=== PATIENT | female | born 1945 | race Caucasian/White ===

== ENCOUNTER 2017-01-16 08:56 | Inpatient (IN) | payer BC, MEDICARE ==
[~2017-01-16] VITALS: Ht 154.9 cm; Wt 61.3 kg
[~2017-01-16 08:56] MED LIST: ALEVE 220MG220 MG PO; CIPRO 500MG TA500 MG PO; COLACE 100100 MG/CAP PO; DESYREL 50MG50 MG PO; FML 5 ML5 ML OP; HYOPHEN1 TAB PO; HYZAAR 12.5 MG-1 TAB PO; MYRBETR25MG PO; PERCOCET 325 MG1 TA2 PO; PRILOSEC 20MG20 MG PO; PROSED D/S1 TAB; SENNA5.6 MG PO; ZETIA 10MG TAB10 MG PO; ZYRTEC 10MG10 MG PO
[2017-02-08] VITALS (12 sets, daily range): BP systolic 111–128; BP diastolic 47–81; PULSE 65–99; TEMP 97.7–99.4
[2017-02-08] MEDS ORDERED: LUNESTA 1MG TAB1 MG PO (06:05)
[2017-02-08] MEDS ORDERED: ZYRTEC 10MG10 MG PO (06:05)
[2017-02-08] MEDS ORDERED: FLORAJEN A20 Billion PO (06:06)
[2017-02-08] MEDS ORDERED: COLACE 100100 MG/CAP PO (22:57)
[2017-02-09 02:17] VITALS: BP 110/51; PULSE 99; TEMP 98.7
[2017-02-09 05:59] VITALS: BP 104/54; PULSE 94; TEMP 97.9
[2017-02-09 07:20] LABS: HEMATOCRIT 35.9 % (37.0-47.0); HEMOGLOBIN 11.6 g/dl (12.5-16.0)
[2017-02-09 07:22] LABS: CALCIUM 8.5 mg/dL (8.4-10.2); CREATININE, serum 0.67 mg/dL (0.52-1.25); MAGNESIUM 1.6 mg/dL (1.6-2.3); PHOSPHOROUS 3.1 mg/dL (2.5-4.5); POTASSIUM 3.6 mmol/L (3.4-5.0)
[2017-02-09 10:31] VITALS: BP 105/53; PULSE 102; TEMP 98.2
[2017-02-09 14:17] VITALS: BP 99/46; PULSE 92; TEMP 98.4
[2017-02-09 17:38] VITALS: BP 132/58; PULSE 93; TEMP 98.2
[2017-02-09 21:59] VITALS: BP 105/51; PULSE 63; TEMP 98.5
[2017-02-10 01:21] VITALS: BP 115/58; PULSE 91; TEMP 98.3
[2017-02-10 05:58] VITALS: BP 124/63; PULSE 97; TEMP 98.8
[2017-02-10 09:34] VITALS: BP 110/52; PULSE 98; TEMP 99.4
[2017-02-10 14:03] VITALS: BP 98/50; PULSE 99; TEMP 98.6
[2017-02-10 17:32] VITALS: BP 111/62; PULSE 84; TEMP 97.6
[2017-02-10 21:15] VITALS: BP 107/53; PULSE 87; TEMP 98.7
[2017-02-11 01:48] VITALS: BP 108/56; PULSE 83; TEMP 97.6
[2017-02-11 06:01] VITALS: BP 93/64; PULSE 85; TEMP 98.1
[2017-02-11 09:40] VITALS: BP 104/52; PULSE 92; TEMP 97.8
[2017-02-11 13:13] VITALS: BP 117/59; PULSE 84; TEMP 97.6
[2017-02-11 18:10] VITALS: BP 141/78; PULSE 94; TEMP 98.2
[2017-02-11 21:12] VITALS: BP 131/54; PULSE 90; TEMP 99.8
[2017-02-12 04:25] VITALS: BP 129/62; PULSE 88; TEMP 98.5
[2017-02-12] MEDS ORDERED: MOTRIN 400400 MG/TAB PO (08:58)
[2017-02-12] MEDS ORDERED: NORCO 325 MG-7.1 TAB PO (08:58)
[2017-02-12 09:41] VITALS: BP 148/59; PULSE 93; TEMP 97.4
== END 2017-02-12 11:30 | disposition home or self-care (01) | DRG 337 ==
LOC: INPTSU 02-08 05:42 → SURG 02-08 05:42
PROVIDERS: Surgery
PROC: 0DNW0ZZ Release Peritoneum, Open Approach (ICD-10-PCS; 2017-02-08)
PROC: 0WUF0JZ Supplement Abdominal Wall with Synthetic Substitute, Open Approach (ICD-10-PCS; principal; 2017-02-08 07:30)
DX: K43.5 Parastomal hernia without obstruction or gangrene (principal); K43.2 Incisional hernia without obstruction or gangrene; K66.0 Peritoneal adhesions (postprocedural) (postinfection); I10 Essential (primary) hypertension; Z85.51 Personal history of malignant neoplasm of bladder; Z86.73 Personal history of transient ischemic attack (TIA), and cerebral infarction without residual deficits
CPT/HCPCS: A4315; A9284; C1781; J0690; J1100; J1650; J2250; J2370; J2405; J2704; J2710; J3010; J7120

== ENCOUNTER → 2017-02-28 | Outpatient (CLI) | payer BC, MEDICARE ==
[~2017-02-28] MED LIST changes: +FLORAJEN A20 Billion PO; +LUNESTA 1MG TAB1 MG PO; +MOTRIN 400400 MG/TAB PO; +NORCO 325 MG-7.1 TAB PO
== END ==
LOC: ZCOL.LAB 14:57
DX: K43.2 Incisional hernia without obstruction or gangrene (principal); K43.5 Parastomal hernia without obstruction or gangrene

== ENCOUNTER → 2017-03-03 | Outpatient (CLI) | payer BC, MEDICARE | LOC: WCC 14:31 | DX: T81.31XA Disruption of external operation (surgical) wound, not elsewhere classified, initial encounter (principal); Z88.3 Allergy status to other anti-infective agents; Z88.2 Allergy status to sulfonamides | CPT/HCPCS: 27511; A6210; G0463 ==

== ENCOUNTER → 2017-03-06 | Outpatient (CLI) | payer BC, MEDICARE | LOC: WCC 08:13 | DX: T81.31XA Disruption of external operation (surgical) wound, not elsewhere classified, initial encounter (principal) ==

== ENCOUNTER → 2017-03-08 | Outpatient (CLI) | payer BC, MEDICARE | LOC: WCC 10:10 | DX: T81.31XA Disruption of external operation (surgical) wound, not elsewhere classified, initial encounter (principal) ==

== ENCOUNTER → 2017-03-10 | Outpatient (CLI) | payer BC, MEDICARE | LOC: WCC 09:04 | DX: T81.31XA Disruption of external operation (surgical) wound, not elsewhere classified, initial encounter (principal) | CPT/HCPCS: 17717; A6212; G0463 ==

== ENCOUNTER → 2017-03-13 | Outpatient (CLI) | payer BC, MEDICARE | LOC: WCC 10:28 | DX: T81.31XA Disruption of external operation (surgical) wound, not elsewhere classified, initial encounter (principal) ==

== ENCOUNTER → 2017-03-15 | Outpatient (CLI) | payer BC, MEDICARE | LOC: WCC 09:01 | DX: T81.31XA Disruption of external operation (surgical) wound, not elsewhere classified, initial encounter (principal); Z93.6 Other artificial openings of urinary tract status ==

== ENCOUNTER → 2017-03-17 | Outpatient (CLI) | payer BC, MEDICARE | LOC: WCC 08:56 | DX: T81.31XA Disruption of external operation (surgical) wound, not elsewhere classified, initial encounter (principal); Z93.6 Other artificial openings of urinary tract status ==

== ENCOUNTER → 2017-03-21 | Outpatient (CLI) | payer BC, MEDICARE | LOC: WCC 09:03 | DX: T81.31XA Disruption of external operation (surgical) wound, not elsewhere classified, initial encounter (principal); Z93.6 Other artificial openings of urinary tract status ==

== ENCOUNTER → 2017-03-24 | Outpatient (CLI) | payer BC, MEDICARE | LOC: WCC 10:25 | DX: T81.31XA Disruption of external operation (surgical) wound, not elsewhere classified, initial encounter (principal) ==

== ENCOUNTER → 2017-03-27 | Outpatient (CLI) | payer BC, MEDICARE | LOC: WCC 09:12 | DX: T81.31XA Disruption of external operation (surgical) wound, not elsewhere classified, initial encounter (principal) ==

== ENCOUNTER → 2017-03-29 | Outpatient (CLI) | payer BC, MEDICARE | LOC: WCC 08:50 | DX: T81.31XA Disruption of external operation (surgical) wound, not elsewhere classified, initial encounter (principal) ==

== ENCOUNTER → 2017-03-31 | Outpatient (CLI) | payer BC, MEDICARE | LOC: WCC 03-30 08:41 | DX: T81.31XA Disruption of external operation (surgical) wound, not elsewhere classified, initial encounter (principal); Z93.6 Other artificial openings of urinary tract status ==

== ENCOUNTER → 2017-04-03 | Outpatient (CLI) | payer BC, MEDICARE | LOC: WCC 09:44 | DX: T81.31XA Disruption of external operation (surgical) wound, not elsewhere classified, initial encounter (principal) ==

== ENCOUNTER → 2017-04-05 | Outpatient (CLI) | payer BC, MEDICARE | LOC: WCC 04-03 09:15 | DX: T81.31XA Disruption of external operation (surgical) wound, not elsewhere classified, initial encounter (principal) ==

== ENCOUNTER → 2017-04-07 | Outpatient (CLI) | payer BC, MEDICARE | LOC: WCC 04-03 08:23 | DX: T81.31XA Disruption of external operation (surgical) wound, not elsewhere classified, initial encounter (principal); Z93.6 Other artificial openings of urinary tract status ==

== ENCOUNTER → 2017-04-10 | Outpatient (CLI) | payer BC, MEDICARE | LOC: WCC 09:39 | DX: T81.31XA Disruption of external operation (surgical) wound, not elsewhere classified, initial encounter (principal) ==

== ENCOUNTER → 2017-04-12 | Outpatient (CLI) | payer BC, MEDICARE | LOC: WCC 04-11 10:06 | DX: T81.31XA Disruption of external operation (surgical) wound, not elsewhere classified, initial encounter (principal); Z93.6 Other artificial openings of urinary tract status ==

== ENCOUNTER → 2017-04-14 | Outpatient (CLI) | payer BC, MEDICARE | LOC: WCC 08:32 | DX: T81.31XA Disruption of external operation (surgical) wound, not elsewhere classified, initial encounter (principal); Z93.6 Other artificial openings of urinary tract status | CPT/HCPCS: 17717; A6212; G0463 ==

== ENCOUNTER → 2017-04-17 | Outpatient (CLI) | payer BC, MEDICARE | LOC: WCC 08:39 | DX: T81.31XA Disruption of external operation (surgical) wound, not elsewhere classified, initial encounter (principal); Z93.6 Other artificial openings of urinary tract status ==

== ENCOUNTER → 2017-04-19 | Outpatient (CLI) | payer BC, MEDICARE | LOC: WCC 08:47 | DX: T81.31XA Disruption of external operation (surgical) wound, not elsewhere classified, initial encounter (principal); Z93.6 Other artificial openings of urinary tract status ==

== ENCOUNTER → 2017-04-21 | Outpatient (CLI) | payer BC, MEDICARE | LOC: WCC 08:42 | DX: T81.31XA Disruption of external operation (surgical) wound, not elsewhere classified, initial encounter (principal); Z93.6 Other artificial openings of urinary tract status ==

== ENCOUNTER → 2017-04-24 | Outpatient (CLI) | payer BC, MEDICARE | LOC: WCC 10:28 | DX: T81.31XA Disruption of external operation (surgical) wound, not elsewhere classified, initial encounter (principal); Z93.6 Other artificial openings of urinary tract status | CPT/HCPCS: 17717; 27515; A6212; G0463 ==

== ENCOUNTER → 2017-04-26 | Outpatient (CLI) | payer BC, MEDICARE | LOC: WCC 04-25 10:08 | DX: T81.31XA Disruption of external operation (surgical) wound, not elsewhere classified, initial encounter (principal) | CPT/HCPCS: 17717; 27514; A6212; G0463 ==

== ENCOUNTER → 2017-05-01 | Outpatient (CLI) | payer BC, MEDICARE | LOC: WCC 10:22 | DX: T81.31XA Disruption of external operation (surgical) wound, not elsewhere classified, initial encounter (principal); Z93.6 Other artificial openings of urinary tract status | CPT/HCPCS: 17716; 27510; A6197; A6212; G0463 ==

== ENCOUNTER 2017-06-22 11:33 | Outpatient (CLI) | payer BC ==
[~2017-06-22] VITALS: Ht 154.9 cm; Wt 59.8 kg
[2017-06-22] VITALS (14 sets, daily range): BP systolic 138–193; BP diastolic 70–99; PULSE 66–82; TEMP 98.6
== END 2017-06-22 16:15 | disposition home or self-care (01) ==
LOC: COL.RAD 11:33
DX: R91.1 Solitary pulmonary nodule (principal); Z85.51 Personal history of malignant neoplasm of bladder

== ENCOUNTER → 2017-06-28 | Outpatient (CLI) | payer BC, MEDICARE | LOC: MC.RAD 06-20 09:20 | DX: Z12.31 Encounter for screening mammogram for malignant neoplasm of breast (principal) ==

== ENCOUNTER → 2017-06-29 | Outpatient (CLI) | payer BC | LOC: COL.RAD 14:23 | DX: C34.90 Malignant neoplasm of unspecified part of unspecified bronchus or lung (principal) | CPT/HCPCS: A9585 ==

== ENCOUNTER → 2018-06-29 | Outpatient (CLI) | payer BC | LOC: MC.RAD 09:53 | DX: Z12.31 Encounter for screening mammogram for malignant neoplasm of breast (principal) ==

== ENCOUNTER → 2019-07-01 | Outpatient (CLI) | payer MEDICARE, BC | LOC: MC.RAD 10:30 | DX: Z12.31 Encounter for screening mammogram for malignant neoplasm of breast (principal) ==

== ENCOUNTER → 2020-01-10 | Outpatient (CLI) | payer MEDICARE, BC | LOC: COL.RAD 01-08 07:30 | DX: C34.31 Malignant neoplasm of lower lobe, right bronchus or lung (principal); J44.9 Chronic obstructive pulmonary disease, unspecified; J98.4 Other disorders of lung; K43.5 Parastomal hernia without obstruction or gangrene; Z98.890 Other specified postprocedural states; Z90.49 Acquired absence of other specified parts of digestive tract; Z90.710 Acquired absence of both cervix and uterus; Z96.641 Presence of right artificial hip joint ==

== ENCOUNTER 2020-03-25 05:36 | Day surgery (SDC) | payer MEDICARE, BC ==
[~2020-03-25] VITALS: Ht 154.9 cm; Wt 65.0 kg
[2020-03-25] VITALS (11 sets, daily range): BP systolic 99–145; BP diastolic 41–81; PULSE 64–101; TEMP 97.3–99
--- NOTE | 2020-03-25 05:40 | NUR ---
To room 329 via wheelchair. Oriented to room/policy. Admission assessment complete. Med RX completed. Consent signed. Right shoulder scrub complete/sight marked. IV placed to left hand x2 attempts-20guage. Emelyn maloney. Denies questions/concerns. Call light in reach. Will monitor.
[2020-03-25] MEDS ORDERED: FOLIC ACID 11 MG/TA1 PO (06:17)
[2020-03-25] MEDS ORDERED: NATURAL IRON65 MG PO (06:17)
[2020-03-25] MEDS ORDERED: VITAMINC1000TA PO (06:17)
--- NOTE | 2020-03-25 06:27 | NUR ---
To OR via bed at this time.
--- NOTE | 2020-03-25 11:24 | NUR ---
PT TO ROOM 329 PER BED WITH LEXIE TERMINAL SUPERINTENDENT @1110.PT IS A/O X3, DENIES PAIN, LUNGS CLEAR, RIGHT SHOULDER WITH BULKY FOAM TAPE, IV TO PUMP, SCDS BILATERALLY, TEDS INPLACE. PT'S AT BEDSIDE.
--- NOTE | 2020-03-25 14:51 | NUR ---
DICKSON met with the patient and her , Kwadwo (ph#[phone]), to discuss discharge plan. The patient lives in [place] with her . She reports independence with ADLs and has a cane available to her, if needed. The patient's PCP is Dr. Mimi Hand and she receives her medications at [facility]. She reports no difficulties obtaining her meds. The patient's DPOA-HC is in EMR and it designates her . The patient plans to return home with her and receive outpatient PT at [facility] upon discharge. No additional needs at this time.
--- NOTE | 2020-03-25 19:28 | NUR ---
Tolerating diet/fluids. INTd at this time.
--- NOTE | 2020-03-25 20:00 | NUR ---
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 Assessment complete. A&Ox3. VS stable. Denies pain/nausea/shortness of breath. Can wiggle fingers but states arm is still numb to touch. Dressing to right shoulder-bulky with foam tape-CDI. Immobilizer on. Fresh ice pack applied. SCDs/TEDs bilat. Denies questions/concerns. Call light in reach. Will monitor.
--- NOTE | 2020-03-25 21:05 | NUR ---
Called with c/o pain to right shoulder-rating pain 6/10 on pain scale-described as aching. Roxicodone given per dr licea.
[2020-03-26 00:09] VITALS: BP 150/77; PULSE 96; TEMP 99.3
--- NOTE | 2020-03-26 00:10 | NUR ---
Called with c/o pain to right shoulder described as throbbing-7/10 on pain scale. Hydrocodone given per dr order. Fresh ice pack applied. Will monitor.
--- NOTE | 2020-03-26 01:18 | NUR ---
Resting eyes closed/audible snore. NO s/s of pain noted.
[2020-03-26 04:00] VITALS: BP 145/68; PULSE 83; TEMP 98.4
--- NOTE | 2020-03-26 05:37 | NUR ---
Called with c/o pain to right shoulder described as constant throbbing-rating 7/10 on pain scale. Oxycodone given per dr licea
--- NOTE | 2020-03-26 05:44 | NUR ---
Rested well this shift. Pain adequately controlled with PO medications. Tolerating diet. Adequate output to urostomy. SCDs/TEDs bilat. Ice to right shoulder as well ass abductor sling. Denies needs. Call light in reach. Will monitor.
--- NOTE | 2020-03-26 07:46 | NUR ---
all pules present and palpable, pt states that she isnt able to fully relax shoulder at this time ice to be applied. Dressing CDI no swelling or redness noted at this time.
[2020-03-26 07:58] LABS: HEMATOCRIT 34.3 % (37.0-47.0); HEMOGLOBIN 10.8 g/dl (12.5-16.0)
[2020-03-26 08:21] VITALS: BP 107/51; PULSE 86; TEMP 97.6
--- NOTE | 2020-03-26 10:03 | NUR ---
PT UP WITH THERAPY, PARTICIPATED FULLY AND COMPLETED ALL TASKS. PAIN WELL CONTROLLED WITH PO PAIN MEDS AT THIS TIME.
[2020-03-26] MEDS ORDERED: NORCO 325 MG-7.1 TAB PO (12:00)
[2020-03-26] MEDS ORDERED: SENOKOT S 50 MG1 TAB PO (12:00)
[2020-03-26] MEDS ORDERED: ASPI325T6 PO (12:00)
[2020-03-26] MEDS ORDERED: ULTRAM 50MG TAB50 MG PO (12:00)
--- NOTE | 2020-03-26 12:23 | NUR ---
DISCHARGE INSTRUCTIONS REVIEWED WITH PT AND SPOUSE. QUESSTIONS SOLICITED AND ANSWERED. PT TAKEN OUT TO ED ENTRANCE BY WHEEL CHAIR AND STAFF.
[2020-03-26 13:01] VITALS: BP 135/66; PULSE 91; TEMP 98
== END 2020-03-26 12:27 | disposition home or self-care (01) ==
LOC: JCC 05:36 → SDCO 05:36 → JCC 07:30 → EDSTATUS 07:30 → SDCO 03-26 12:27 → JCC 03-26 12:27
PROVIDERS: Orthopaedic Surgery
DX: M75.101 Unspecified rotator cuff tear or rupture of right shoulder, not specified as traumatic (principal); Z79.82 Long term (current) use of aspirin; Z96.641 Presence of right artificial hip joint; Z90.710 Acquired absence of both cervix and uterus; I10 Essential (primary) hypertension; Z86.73 Personal history of transient ischemic attack (TIA), and cerebral infarction without residual deficits; Z85.51 Personal history of malignant neoplasm of bladder; Z20.828 Contact with and (suspected) exposure to other viral communicable diseases; Z85.118 Personal history of other malignant neoplasm of bronchus and lung; M19.90 Unspecified osteoarthritis, unspecified site; Z88.0 Allergy status to penicillin; Z79.01 Long term (current) use of anticoagulants; K21.9 Gastro-esophageal reflux disease without esophagitis
CPT/HCPCS: A4314; A4619; A9284; C1713; C1776; J0690; J1100; J2250; J2405; J2704; J2795; J3010

== ENCOUNTER → 2020-07-13 | Outpatient (CLI) | payer MEDICARE, BC ==
[~2020-07-13] MED LIST changes: +ASPI325T6 PO; +FOLIC ACID 11 MG/TA1 PO; +NATURAL IRON65 MG PO; +SENOKOT S 50 MG1 TAB PO; +ULTRAM 50MG TAB50 MG PO; +VITAMINC1000TA PO
== END ==
LOC: MC.RAD 10:45
DX: Z12.31 Encounter for screening mammogram for malignant neoplasm of breast (principal)

== ENCOUNTER → 2021-01-07 | Outpatient (CLI) | payer MEDICARE, BC ==
[~2021-01-07] MED LIST changes: +B-121000 MCG PO; +LOPRESSOR 225 MG/TAB PO; +PROAIR HFA0.09 MG/AC IH; +TYLENOL 500MG500 MG PO; +VIRTUSSIN AC 1118 ML PO; +ZITHROMAX 250M250 MG PO
== END ==
LOC: COL.RAD 09:58
DX: K43.5 Parastomal hernia without obstruction or gangrene (principal); F91.9 Conduct disorder, unspecified; C67.9 Malignant neoplasm of bladder, unspecified; C34.91 Malignant neoplasm of unspecified part of right bronchus or lung; Z90.710 Acquired absence of both cervix and uterus; Z90.49 Acquired absence of other specified parts of digestive tract
CPT/HCPCS: Q9967

== ENCOUNTER 2021-04-29 09:44 | Inpatient (IN) | payer MEDICARE, BC ==
[~2021-04-29] VITALS: Ht 152.4 cm; Wt 65.5 kg
[~2021-04-29 09:44] MED LIST changes: -B-121000 MCG PO; -LOPRESSOR 225 MG/TAB PO; -PROAIR HFA0.09 MG/AC IH; -TYLENOL 500MG500 MG PO; -VIRTUSSIN AC 1118 ML PO; -ZITHROMAX 250M250 MG PO
[2021-04-29 10:35] LABS: COLLECTION METHOD CLEAN CATCH
[2021-04-29 10:38] LABS: BASO # 0.1 K/mm3 (0.0-0.2); BASO % 0.4 % (0.0-2.0); EOS % 0.1 % (0-4.0); GRAN # 11.6 K/mm3 (1.4-6.5); GRAN % 86.1 % (42.2-75.2); HEMATOCRIT 38.1 % (37.0-47.0); HEMOGLOBIN 12.2 g/dl (12.5-16.0); LYMPH # 0.7 K/mm3 (1.2-3.4); LYMPH % 4.9 % (20.0-51.0); MEAN CELL VOLUME 90 fl (80.0-100.0); MEAN CORPUSCULAR HEMOGLOBIN 29 pg (27.0-31.0); MEAN CORPUSCULAR HGB CONC 32 g/dl (33.0-37.0); MEAN PLATELET VOLUME 9.1 fl (7.4-10.4); MONO % 7.6 % (1.7-9.3); PLATELET COUNT 254 K/mm3 (130-400); RED BLOOD COUNT 4.23 M/mm3 (4.10-5.30); REDCELL DISTRIBUTION WIDTH-CV 15.6 % (11.5-14.5)
[2021-04-29 10:43] LABS: MUCOUS Present /lpf; PH 6 (5-8); SQUAMOUS EPITHELIAL 0-2 /hpf; URINE APPEARANCE Hazy; URINE BACTERIA Many /hpf; URINE BILIRUBIN Negative (NEGATIVE); URINE BLOOD 2+ (NEGATIVE); URINE COLOR Yellow; URINE GLUCOSE Negative (NEGATIVE); URINE KETONE Negative (NEGATIVE); URINE LEUKOCYTE ESTERASE Trace (NEGATIVE); URINE NITRATE Positive (NEGATIVE); URINE PROTEIN(semi-quant) 2+ (NEGATIVE); URINE UROBILINOGEN Negative (NEGATIVE)
[2021-04-29 11:00] LABS: ALBUMIN 3.4 gm/dL (3.4-4.8); BILIRUBIN,TOTAL 0.7 mg/dL (0.2-1.2); C-REACTIVE PROTEIN 8.2 mg/dL (0.00-0.50); CALCIUM 9.4 mg/dL (8.4-10.2); CREATININE, serum 0.93 mg/dL (0.57-1.11); POTASSIUM 3.7 mmol/L (3.5-4.5); TOTAL PROTEIN 7.8 gm/dL (6.2-8.1)
[2021-04-29 11:12] LABS: TROPONIN-I 0.063 ng/mL (0.00-0.033)
[2021-04-29] MEDS ORDERED: TYLENOL 500MG500 MG PO (15:51)
[2021-04-29 16:55] VITALS: BP 149/80; PULSE 103; TEMP 100
[2021-04-29 17:44] LABS: THYROID STIMULATING HORMONE 1.366 uIU/mL (0.350-4.940)
--- NOTE | 2021-04-29 18:45 | NUR ---
Shift report completed. This RN and Christie-RN boosted the patient up in bed and got her set-up for supper. Patient's was in the room. Patient's urostomy was connected to a drainage bag. Patient does not have any complaints at this time.
--- NOTE | 2021-04-29 19:00 | NUR ---
Received call from Lab reporting troponin 0.455, contacted Hospitalist, she is checking case. Patient reports chest pain only when she coughs. She had her dinner.
[2021-04-29 19:41] VITALS: BP 154/65; PULSE 103; TEMP 100
[2021-04-29 20:30] VITALS: BP 145/63; PULSE 101; TEMP 98.7
--- NOTE | 2021-04-29 20:30 | NUR ---
Patient is resting in bed after having dinner. is in room. Low fever 100, Reports some discomfort when coughing in the chest. Asked for Tylenol as she is used to it twice a day, provided. Urostomy in right lower abd. Red beefy tissue. Dsouza adapted for the night. Tele in place, NS running at 125ml/hr. Assessment completed, meds provided, no further needs at this time. Call light within reach.
[2021-04-30 00:55] VITALS: BP 118/54; PULSE 69; TEMP 97.5
[2021-04-30 04:34] VITALS: BP 134/57; PULSE 73; TEMP 97.6
--- NOTE | 2021-04-30 04:56 | NUR ---
Troponin level 0.228, hospitalist notified.
--- NOTE | 2021-04-30 07:07 | NUR ---
Patient do not have cough while sleeping. When awake she does and has discomfort and chest pain. Her Troponin levels went from 0.45 to 0.22. Shift report given to day nurse.
[2021-04-30 08:06] VITALS: BP 148/69; PULSE 86; TEMP 97.9
--- NOTE | 2021-04-30 09:28 | NUR ---
Vancomycin Initial Dosing Pharmacy Note Ordering provider: MD JACQUELINE Indication/duration: EMPIRIC LABS: WBC 13.5, SCR 0.9, CRCL ~40 Recommendation: VANCOMYCIN ~15 MG/KG Loading dose: 1.25 grams Maintenance dose: 1 gram every 24 hours Trough goal: 15 ug/mL. TROUGH IF CLINICALLY INDICATED
--- NOTE | 2021-04-30 10:53 | NUR ---
Patient sitting up in bed with present. Patient requesting breathing treatment but none is ordered, physician notified. Patient was given all scheduled medications as well as PRN mucinex. Patient does not have any complaints at this time.
--- NOTE | 2021-04-30 11:45 | NUR ---
Initial visit; Patient thanked Piccolo Mechanic for stopping and offering God's blessings and to keep her in [employer]colo [employer]ic's prayers.
[2021-04-30 12:28] VITALS: BP 122/55; PULSE 79; TEMP 98.1
[2021-04-30 16:41] VITALS: BP 146/69; PULSE 84; TEMP 98.2
--- NOTE | 2021-04-30 18:18 | NUR ---
Patient has done well today. New IV was started in the right forearm, as the one in the left AC was leaking. Patient has requested 2 breathing treatments during this shift. All medications administered without difficulty.
--- NOTE | 2021-04-30 20:30 | NUR ---
Patient is lying in bed, in room. Alert and oriented x 4, Urostomy bag in place connected to lockwood cath bag. NS 125 ml/hr. Patient continues with sporadic cough with pain in chest while coughing. Assessment completed, meds provided. No further needs at this time. Call light within reach.
[2021-04-30 20:50] VITALS: BP 147/62; PULSE 97; TEMP 98.4
[2021-05-01 00:37] VITALS: BP 139/58; PULSE 76; TEMP 97.6
[2021-05-01 04:30] VITALS: BP 138/53; PULSE 83; TEMP 98
[2021-05-01 06:36] LABS: BASO % 0.3 % (0.0-2.0); EOS # 0.1 K/mm3 (0.0-0.7); EOS % 0.9 % (0-4.0); GRAN # 7.3 K/mm3 (1.4-6.5); LYMPH # 1.2 K/mm3 (1.2-3.4); LYMPH % 13.1 % (20.0-51.0); MEAN CELL VOLUME 92 fl (80.0-100.0); MEAN CORPUSCULAR HGB CONC 32 g/dl (33.0-37.0); MEAN PLATELET VOLUME 9.7 fl (7.4-10.4); MONO # 0.6 K/mm3 (0.1-0.6); MONO % 6.1 % (1.7-9.3); PLATELET COUNT 216 K/mm3 (130-400); RED BLOOD COUNT 3.21 M/mm3 (4.10-5.30); REDCELL DISTRIBUTION WIDTH-CV 15.8 % (11.5-14.5)
[2021-05-01 06:38] LABS: HEMATOCRIT 29.5 % (37.0-47.0); HEMOGLOBIN 9.3 g/dl (12.5-16.0); MEAN CORPUSCULAR HEMOGLOBIN 29 pg (27.0-31.0)
[2021-05-01 06:53] LABS: CALCIUM 7.8 mg/dL (8.4-10.2); CREATININE, serum 0.69 mg/dL (0.57-1.11)
--- NOTE | 2021-05-01 07:03 | NUR ---
Patient has had a calm night but with cough when awake. She has had a good urine output. She indicates she likes the breathing treatment since it helps with the cough, so she asked for more. Respt Therapy notified. No further needs at this time, shift report given to day shift nurse.
[2021-05-01 07:44] VITALS: BP 157/75; PULSE 83; TEMP 98.3
[2021-05-01 11:24] VITALS: BP 124/51; PULSE 77; TEMP 98.2
[2021-05-01] MEDS ORDERED: ZITHROMAX 250M250 MG PO (11:29)
[2021-05-01] MEDS ORDERED: LOPRESSOR 225 MG/TAB PO (11:43)
[2021-05-01] MEDS ORDERED: PROAIR HFA0.09 MG/AC IH (11:44)
[2021-05-01] MEDS ORDERED: B-121000 MCG PO (11:51)
[2021-05-01] MEDS ORDERED: VIRTUSSIN AC 1118 ML PO (11:51)
--- NOTE | 2021-05-01 14:16 | NUR ---
Discharge orders discussed with patient and her , instructed to follow up with PCP in 1 week/ call to schedule, instructed to take meds as prescribed and scripts sent to pharmacy for her, IV and tele removed, patient leaving with her , questions answered and they deny other needs or concerns, GAMING TABLE OPERATOR escorted her out the door by wheelchair
== END 2021-05-01 14:36 | disposition home or self-care (01) | DRG 871 ==
LOC: COL.ER 09:44 → MEDICAL 13:10
PROVIDERS: Family Medicine; Internal Medicine; ADMIT Internal Medicine
DX: A41.1 Sepsis due to other specified staphylococcus (principal); G93.41 Metabolic encephalopathy; I21.A1 Myocardial infarction type 2; N39.0 Urinary tract infection, site not specified; E87.1 Hypo-osmolality and hyponatremia; R65.20 Severe sepsis without septic shock; I10 Essential (primary) hypertension; K21.9 Gastro-esophageal reflux disease without esophagitis; G47.00 Insomnia, unspecified; K59.00 Constipation, unspecified; I45.10 Unspecified right bundle-branch block; J20.9 Acute bronchitis, unspecified; E53.8 Deficiency of other specified B group vitamins; E87.6 Hypokalemia; T50.2X5A Adverse effect of carbonic-anhydrase inhibitors, benzothiadiazides and other diuretics, initial encounter; Z85.51 Personal history of malignant neoplasm of bladder; Z85.118 Personal history of other malignant neoplasm of bronchus and lung; Z87.891 Personal history of nicotine dependence
CPT/HCPCS: 99223-AI; 99232-AI; J0696; J1650; J1940; J3370; J7030; J7050

== ENCOUNTER → 2021-05-04 | Outpatient (CLI) | payer MEDICARE, BC ==
[~2021-05-04] MED LIST changes: +B-121000 MCG PO; +LOPRESSOR 225 MG/TAB PO; +PROAIR HFA0.09 MG/AC IH; +TYLENOL 500MG500 MG PO; +VIRTUSSIN AC 1118 ML PO; +ZITHROMAX 250M250 MG PO
== END ==
LOC: COL.RAD 09:20
DX: I31.3 Pericardial effusion (noninflammatory) (principal); J18.1 Lobar pneumonia, unspecified organism; R59.0 Localized enlarged lymph nodes
CPT/HCPCS: Q9967

== ENCOUNTER → 2021-12-02 | Outpatient (CLI) | payer MEDICARE, BC | LOC: MC.RAD 11-15 11:00 | DX: Z12.31 Encounter for screening mammogram for malignant neoplasm of breast (principal); R92.0 Mammographic microcalcification found on diagnostic imaging of breast; N64.89 Other specified disorders of breast ==

== ENCOUNTER → 2021-12-10 | Outpatient (CLI) | payer MEDICARE, BC | LOC: MC.RAD 13:00 | DX: R92.0 Mammographic microcalcification found on diagnostic imaging of breast (principal) ==

== ENCOUNTER → 2021-12-14 | Outpatient (CLI) | payer MEDICARE, BC | LOC: COL.RAD 10:29 | DX: R59.0 Localized enlarged lymph nodes (principal); Z90.2 Acquired absence of lung [part of]; Z85.118 Personal history of other malignant neoplasm of bronchus and lung; Z98.890 Other specified postprocedural states | CPT/HCPCS: Q9967 ==